=== PATIENT | male | born 1960 | race Caucasian/White ===

== ENCOUNTER 2017-10-26 13:49 | Emergency (ER) | payer SELFPAY ==
[~2017-10-26] VITALS: Ht 185.4 cm; Wt 111.1 kg
[2017-10-26] MEDS ORDERED: SODIUM CHLORIDE 0.9% 1,000 ML IV ONE ×2 (13:55)
[2017-10-26] MEDS ORDERED: THIAMINE 100mg/ml INJ (200mg/2ml VIAL) IV ONE (14:00)
[2017-10-26 14:12] VITALS: BP 141/87
[2017-10-26] MEDS ORDERED: ASPirin 81 mg TAB PO ONE (15:15)
[2017-10-26 15:30] LABS: Basophils # (auto) 0.1 uL; Basophils % (auto) 1.8 % (0.0-2.0); Eosinophils # (auto) 0.1 uL; Eosinophils % (auto) 1.6 % (0.0-7.0); Hematocrit 44.9 % (41.0-53.0); Hemoglobin 15.3 g/dL (13.5-17.5); Lymphocytes # (auto) 1.3 uL; Lymphocytes % (auto) 38.8 % (10.0-50.0); Mean Corpuscular Hemoglobin 32.8 pg (28.0-32.0); Mean Corpuscular Volume 96.7 fL (80.0-100.0); Monocytes # (auto) 0.2 uL; Monocytes % (auto) 6.4 % (0.0-12.0); Neutrophils # (auto) 1.7 uL; Neutrophils % (auto) 51.4 % (37.0-80.0); Nucleated Red Blood Cells % 0.1 %; Platelet Count (auto) 157 10^3/uL (140-450); Red Blood Cells 4.64 10^6/uL (4.5-5.90); Red Cell Distribution Width 14.9 % (11.8-14.3); White Blood Cell 3.4 10^3/uL (4.4-10.8)
[2017-10-26] MEDS ORDERED: ONDANSETRON ODT 4 MG TAB PO ONE (15:30)
[2017-10-26] MEDS ORDERED: chlordiazePOXIDE HCL 25 MG CAP PO ONE (15:30)
[2017-10-26 16:05] LABS: Albumin 3.1 g/dL (3.4-5.0); BUN/Creatinine Ratio 6.3; Bilirubin, Total 0.4 mg/dL (0.2-1.0); Calcium 7.2 mg/dL (8.5-10.1); Potassium 3.8 mmol/L (3.5-5.1); Total Protein 7.1 g/dL (6.4-8.2)
[2017-10-26 16:13] LABS: Urine Bacteria NONE SEEN /hpf (None Seen); Urine Blood 1+ /uL (Negative); Urine Specific Gravity 1.004 (1.001-1.035); Urine WBC 1 /hpf (0 - 3)
== END 2017-10-26 16:45 | disposition left against medical advice (07) ==
LOC: EDBD 13:49 → ER 13:53
DX: E86.0 Dehydration (principal); F10.129 Alcohol abuse with intoxication, unspecified; E11.9 Type 2 diabetes mellitus without complications; I10 Essential (primary) hypertension; F12.10 Cannabis abuse, uncomplicated; Z59.0 Homelessness
CPT/HCPCS: 36415; 80053; 81001; 84484; 85025; 93005; 96361; 96374; 99284; J3411; Q0162; 96360